=== PATIENT | female | born 1980 | race Hispanic/Latino ===

== ENCOUNTER 2018-06-14 08:16 | Day surgery (SDC) | payer OTHER ==
[2018-06-14 08:26] LABS: Urine Appearance CLOUDY; Urine Bilirubin NEGATIVE (NEG); Urine Blood NEGATIVE (NEG); Urine Color YELLOW; Urine Glucose NEGATIVE (NEG); Urine Protein NEGATIVE (NEG); Urine Urobilinogen 0.2 mg/dL (0.2-1.0); Urine pH 6.5 (5.0-7.0)
[2018-06-14] MEDS ORDERED: PROPOFOL 200 MG/20 ML VIAL IV ONE (08:27)
[2018-06-14] MEDS ORDERED: ROCURONIUM 50 MG/5 ML VIAL IV ONE ×2 (08:27→10:35)
[2018-06-14] MEDS ORDERED: GLYCOPYRROLATE 0.2 MG/ML SYR ONE (08:28)
[2018-06-14 08:29] LABS: Absolute Lymphocytes (CBC) 2.8 K/uL (0.7-4.9); Absolute Monocytes 0.7 K/uL (0.1-1.3); Absolute Neutrophil 4.1 K/uL (1.8-8.0); Basophils % 0.8 % (0-1.3); Eosinophils % 2.1 % (0-4.4); Hematocrit 35.4 % (36.0-45.0); Lymphocytes % 35.3 % (15.3-44.8); MPV 7.9 fL (7.6-11.3); Monocytes % 8.9 % (3.3-12.3); RBC Red Blood Cell Count 4.52 M/uL (3.86-4.86)
[2018-06-14] MEDS ORDERED: DEXAMETHASONE 10 MG/ML VIAL ONE (08:29)
[2018-06-14] MEDS ORDERED: FENTANYL CITR 250 MCG/5 ML ONE ×2 (08:29→11:39)
[2018-06-14] MEDS ORDERED: LIDOCAINE 2% MPF 5 ML VIAL ONE (08:29)
[2018-06-14 08:31] LABS: Urine Microscopic Reflex NO UMIC
[2018-06-14] MEDS ORDERED: MIDAZOLAM HCL 2 MG/2 ML INJ ONE (08:31)
[2018-06-14] MEDS ORDERED: ONDANSETRON 4 MG/2 ML VIAL ONE ×2 (08:31→15:02)
[2018-06-14] MEDS ORDERED: SCOPOLAMINE HYDROBROMIDE PATCH TD ONE (08:39)
[2018-06-14] MEDS ORDERED: CEFAZOLIN/SWI 1gm 1 GM/10 ML SYR ONE (08:39)
[2018-06-14] MEDS ORDERED: Ringers Lactate 1,000 ML IV ONE ×4 (08:39→16:47)
[2018-06-14] MEDS ORDERED: CEFAZOLIN SODIUM 1 GM/VIAL ONE ×2 (09:02→14:33)
[2018-06-14] MEDS ORDERED: GENTAMICIN SULF 80 MG/2ML INJ ONE (09:04)
[2018-06-14] MEDS ORDERED: NS 0.9% VIAL 20 ML ONE (09:04)
[2018-06-14] MEDS ORDERED: BACITRACIN 50000 UNIT VIAL ONE (09:04)
[2018-06-14] MEDS ORDERED: NA CHLORIDE 0.9% 1,000 ML ONE ×2 (09:33→15:00)
[2018-06-14] MEDS ORDERED: EPINEPHRINE/PF 1 MG/ML AMP ONE ×2 (09:33→15:00)
[2018-06-14] MEDS ORDERED: MORPHINE 10 MG/ML VIAL ONE (14:10)
[2018-06-14] MEDS ORDERED: NEOSTIGMINE 1 MG/ML -10 ML VIAL ONE (15:02)
[2018-06-14] MEDS ORDERED: KETOROLAC 30 MG/ML INJ ONE (15:02)
[2018-06-14] MEDS ORDERED: Mastisol Adhesive Liq ONE (15:18)
[2018-06-14] MEDS ORDERED: METOCLOPRAMIDE 10 MG/2mL INJ ONE (16:02)
[2018-06-14] MEDS ORDERED: PROMETHAZINE 25 MG/ML VIAL ONE (16:02)
[2018-06-14] MEDS ORDERED: CODEINE 30MG/APAP 300MG TAB ONE (17:39)
--- NOTE | 2018-06-15 03:15 | OP ---
Surgeon: Trever Arnold MD Industrial Engineering Intern: Lucien. 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 Procedure Performed: Breast lift with reduction and liposuction of arms and flanks. Anesthesia: General. Procedure In Detail: After satisfactory induction of general anesthesia, chest was prepped with Dura Prep. Dry sterile drapes were applied in the usual manner. A 45 mm template was used to outline the areola. Then, a transverse curvilinear inferior incision was made. Flaps were elevated cephalad to wards the clavicle, sternum and anterior axillary line. The flap was thinned about 1.5 cm. Then, in ferior incision was made and then the inferolateral excess breast tissue was excised with scalpel and electrocautery. Then, the de-epithelialized tissue was formed into a cone with 2-0 PDS sutures. Th en, straps were elevated at 12 o'clock, 1:30, and 3 o'clock positions. Straps were then woven in and out of the pectoralis major muscle, back to the base of the cone, back to the pectoralis major muscl e and tied to themselves with base of the cone with 2-0 PDS. This was done for the 12 o'clock, 1:30 straps. The 3 o'clock strap was sewn over the sternum at 3 o'clock position with 2-0 Ethibond. This was done in a mirror image manner. The patient's wounds were then closed. A 10 BHUPENDRA was brought out to the axilla and sewn in place with 2-0 silk, closed with 3-0 Vicryl subcu with 3-0 PDS running subc uticular tied in the vertical meridian of each breast. After this was done, the patient was sat up. Site for new nipple-areolar complex was marked out, tissue cored out, nipple was delivered, sewn wit h interrupted 4-0 PDS followed by 4-0 PDS running subcuticular. all the instruments, ligh t handles and flanks were prepped with DuraPrep. An incision was made near the elbow away from of both elbows anteromedially, approximately 4 mm in length and then infusion was pe rformed. A 200 cc of saline infused with epinephrine and then a 4-mm cannula was used to aspirate, t he amount removed was 175 in the left arm and 100 in the right. An incision was made in the lateral flank area inferiorly with 15 blade and then infusion was 300 from each side. The wounds were closed with 4-0 PDS followed by tincture of benzoin, Steri-Strips. Dressing consisted of 5x5s, fluffs, and Dariusz wrap. After this, tincture of benzoin, Steri-Strips applied over the breast and then arms were wrapped with Dariusz wrap. The patient tolerated the procedure well. The amount of breast tissue remove d on the right side was 412, the left side was 344. NORMAN Voice ID: [id number] Report ID: [id number]
== END 2018-06-14 18:31 | disposition home or self-care (01) ==
LOC: OR 08:16
PROVIDERS: ATTEND Specialist
PROC: 0J083ZZ Alteration of Abdomen Subcutaneous Tissue and Fascia, Percutaneous Approach (ICD-10-PCS; 2018-06-14)
PROC: 0J0F3ZZ Alteration of Left Upper Arm Subcutaneous Tissue and Fascia, Percutaneous Approach (ICD-10-PCS; 2018-06-14)
PROC: 0J0D3ZZ Alteration of Right Upper Arm Subcutaneous Tissue and Fascia, Percutaneous Approach (ICD-10-PCS; 2018-06-14)
PROC: 0H0V0ZZ Alteration of Bilateral Breast, Open Approach (ICD-10-PCS; principal; 2018-06-14 09:00)
PROC: 0H0V0ZZ Alteration of Bilateral Breast, Open Approach (ICD-10-PCS; 2018-06-14 09:00)
DX: N64.81 Ptosis of breast (principal); N62 Hypertrophy of breast; E88.1 Lipodystrophy, not elsewhere classified; L98.7 Excessive and redundant skin and subcutaneous tissue
CPT/HCPCS: 36415; 81003; 81025; 85025; 88305; J0171; J0690; J1100; J1580; J2250; J2405; J2550; J2704; J2710; J2765; J3010; J7030